=== PATIENT | female | born 1940 | race Caucasian/White ===

== ENCOUNTER 2016-07-12 18:06 | Emergency (ER) | END 2016-07-12 21:18 | disposition home or self-care (01) | CPT/HCPCS: 94640; 99283; A9270; J7620 ==

== ENCOUNTER 2016-07-18 14:39 | Emergency (ER) | payer MEDICARE, OTHER ==
[2016-07-18] MEDS ORDERED: AZITHROMYCIN 250 MG TABLET PO STA (16:07)
[2016-07-18] MEDS ORDERED: AZITHROMYCIN 250 MG TABLET PO ONE (16:09)
== END 2016-07-18 16:23 | disposition home or self-care (01) ==
DX: R05 Cough (principal); G70.00 Myasthenia gravis without (acute) exacerbation; I10 Essential (primary) hypertension
CPT/HCPCS: 71020; 99283; A9270

== ENCOUNTER 2019-02-23 08:00 | Outpatient (CLI) | payer MEDICARE, OTHER | END 2019-02-23 23:59 | disposition home or self-care (01) | LOC: LAB.R 08:00 | PROVIDERS: ATTEND Internal Medicine Gastroenterology | DX: R19.7 Diarrhea, unspecified (principal) | CPT/HCPCS: 83993 ==

== ENCOUNTER 2019-07-17 07:00 | Outpatient (CLI) | payer MEDICARE, OTHER | END 2019-07-17 23:59 | disposition home or self-care (01) | LOC: LAB.R 07:00 | PROVIDERS: ATTEND Internal Medicine Gastroenterology | DX: R19.7 Diarrhea, unspecified (principal) | CPT/HCPCS: 81599; 83993 ==

== ENCOUNTER 2019-07-17 14:02 | Outpatient (CLI) | payer MEDICARE, OTHER ==
[2019-07-17 14:38] LABS: CALCIUM 8.7 mg/dL (8.5-10.3); CREATININE 1.2 mg/dL (0.4-1.0)
[2019-07-17 14:41] LABS: BILIRUBIN,URINE NEGATIVE (NEGATIVE); GLUCOSE, URINE (UA) NEGATIVE (NEGATIVE); KETONES,URINE (UA) NEGATIVE (NEGATIVE); LEUKOCYTE ESTERASE, URINE NEGATIVE (NEGATIVE); NITRITE,URINE POSITIVE (NEGATIVE); OCCULT BLOOD,URINE MODERATE (NEGATIVE); PH,URINE 5.5 PH (5.0-7.5); PROTEIN,URINE TRACE mg/dL (NEGATIVE); UROBILINOGEN,URINE 0.2 (NORMAL) E.U./dL (NORMAL)
[2019-07-17 14:42] LABS: CLARITY,URINE HAZY (CLEAR)
[2019-07-17 14:50] LABS: BACTERIA,URINE Moderate /HPF (None Seen); RBC,URINE 0-5 /HPF (0-5); SQUAMOUS EPITHELIAL CELL,UR FEW Squamous (<= Few)
[2019-07-17 14:50] LABS: HB2 TOTAL 11.2 g/dL; HEMOGLOBIN A1C 0.57 g/dL; HEMOGLOBIN A1C % 6.8 % (4.6-6.2)
== END 2019-07-17 14:03 | disposition home or self-care (01) ==
LOC: LAB 14:02
PROVIDERS: ATTEND Family Medicine
DX: E11.9 Type 2 diabetes mellitus without complications (principal); N39.0 Urinary tract infection, site not specified; R19.7 Diarrhea, unspecified
CPT/HCPCS: 36415; 80048; 81001; 81599; 83036; 83993

== ENCOUNTER 2019-09-30 22:33 | Emergency (ER) | payer MEDICARE, OTHER ==
--- NOTE | 2019-09-30 23:06 | ED Physician Documentation ---
History of Present Illness - Stated complaint Stated Complaint: COUGH - Chief complaint Chief Complaint: Resp - History obtained from History obtained from: Patient (The patient is a 78-year-old female who presents to the emergency department for a 3-day history of cough. She denies any fevers or difficulty breathing or wheezing or respiratory distress denies any chest pain or lower extremity swelling denies headache, neck pain fevers or rashes.) Review of Systems Constitutional: reports: Reviewed and negative Eyes: reports: Reviewed and negative Ears: reports: Reviewed and negative Nose: reports: Reviewed and negative Throat: reports: Reviewed and negative Cardiac: reports: Reviewed and negative Respiratory: reports: Cough GI: reports: Reviewed and negative : reports: Reviewed and negative Skin: reports: Reviewed and negative Musculoskeletal: reports: Reviewed and negative Neurologic: reports: Reviewed and negative Psychiatric: reports: Reviewed and negative Endocrine: reports: Reviewed and negative Immunocompromised: reports: Reviewed and negative PD PAST MEDICAL HISTORY - Past Medical History Cardiovascular: Hypertension GI: GERD - Past Surgical History Past Surgical History: Yes General: Cholecystectomy Ortho: Hip replacement, Knee replacement, 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 - Present Medications Home Medications: Ambulatory Orders Medication Instructions Recorded Confirmed Naproxen 500 mg ORAL .FREQ 07/07/16 09/30/19 Benzonatate [Tessalon Perle] 100 mg PO BID PRN #7 capsule 09/30/19 Levothyroxine [Synthroid] 1 tab DAILY 09/30/19 09/30/19 Multivitamin [Multiple Vitamins] 1 tab DAILY 09/30/19 09/30/19 - Allergies Allergies/Adverse Reactions: Allergies Allergy/AdvReac Type Severity Reaction Status Date / Time Sulfa (Sulfonamide Allergy Unknown Verified 09/30/19 22:41 Antibiotics) - Social History Does the pt smoke?: No Smoking Status: Never smoker Does the pt drink ETOH?: No Does the pt have substance abuse?: No - Immunizations Immunizations are current?: Yes - POLST Patient has POLST: No PD ED PE NORMAL - Vitals Vital signs reviewed: Yes - General General: Alert and oriented X 3, No acute distress, Well developed/nourished - HEENT HEENT: Atraumatic, PERRL, Moist mucous membranes, Pharynx benign - Neck Neck: Supple, no meningeal sign, No adenopathy - Cardiac Cardiac: RRR, No murmur, Strong equal pulses - Respiratory Respiratory: No respiratory distress, Clear bilaterally - Abdomen Abdomen: Normal bowel sounds, Soft, Non tender, Non distended, No organomegaly - Derm Derm: Normal color, Warm and dry, No rash - Extremities Extremities: No deformity, No tenderness to palpate, Normal ROM s pain, No edema, No calf tenderness / cord - Neuro Neuro: Alert and oriented X 3, ice cream dipper 2-12 intact, No motor deficit, No sensory deficit, Normal speech - Psych Psych: Normal mood, Normal affect Results - Vitals Vitals: Vital Signs - 24 hr 09/30/19 09/30/19 22:38 23:15 Temperature 36.6 C Heart Rate 72 65 Respiratory 16 20 Rate Blood Pressure 134/90 H 137/65 H O2 Saturation 95 96 Oxygen O2 Source Room air PD MEDICAL DECISION MAKING - ED course Complexity details: considered differential (History and exam are consistent with viral syndrome/viral uri, will get a chest x-ray to look for any signs of pneumonia) Departure - Departure Disposition: 01 Home, Self Care Clinical Impression: Cough Condition: Stable Instructions: Bronchitis Chronic Follow-Up: STEVEN LUJAN [Primary Care Provider] - Tomorrow Prescriptions: Benzonatate [Tessalon Perle] 100 mg PO BID PRN #7 capsule PRN Reason: Cough
--- NOTE | 2019-09-30 23:48 | XRAY Report ---
Reason: cough Procedure Date: 09/30/2019 Accession Number: [id number] / [id number] Procedure: XR - Chest 1 View X-Ray CPT Code: 42958 Final Report FULL RESULT: EXAM: CHEST RADIOGRAPHY EXAM DATE: 09/30/2019 11:39 PM. CLINICAL HISTORY: Cough. COMPARISON: CHEST 2 VIEW PA/LAT 07/18/2016 3:27 PM. TECHNIQUE: 1 view. FINDINGS: Lungs/Pleura: No focal opacities evident. No pulmonary edema. No pleural effusion. No pneumothorax. Mediastinum: Within exam limitations, the cardiomediastinal contour is normal. Other: Stable left shoulder arthroplasty. IMPRESSION: No evidence of acute cardiopulmonary process. RADIA
[2019-09-30] MEDS ORDERED: BENZONATATE 100 MG CAPSULE PO STA (23:58)
[2019-10-01 00:17] VITALS: BP 133/76
== END 2019-10-01 00:18 | disposition home or self-care (01) ==
LOC: ED 22:33
DX: R05 Cough (principal); I10 Essential (primary) hypertension
CPT/HCPCS: 71045; 99283; A9270

== ENCOUNTER 2019-10-02 22:43 | Emergency (ER) | payer MEDICARE, OTHER ==
--- NOTE | 2019-10-02 23:57 | ED Physician Documentation ---
History of Present Illness - Stated complaint Stated Complaint: COUGH - Chief complaint Chief Complaint: Heent - Additonal information Additional information: This is a 78-year-old female with a history of past bronchitis who pesents with a cough. She developed cough 1 week ago, it has been persistent since then. She was seen here and prescribed Tessalon Perles 100mg twice daily which have been minimally effective. She denies any fever, shortness of breath, or chest pain. The cough is annoying and keeps her up, but she otherwise is feeling well. No leg swelling or history of heart problems. No hemoptysis. Review of Systems Constitutional: denies: Fever Nose: denies: Rhinorrhea / runny nose Cardiac: denies: Chest pain / pressure Respiratory: reports: Cough. 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 - Present Medications Home Medications: Ambulatory Orders Medication Instructions Recorded Confirmed Naproxen 500 mg ORAL .FREQ 07/07/16 09/30/19 Benzonatate [Tessalon Perle] 100 mg PO BID PRN #7 capsule 09/30/19 Levothyroxine [Synthroid] 1 tab DAILY 09/30/19 09/30/19 Multivitamin [Multiple Vitamins] 1 tab DAILY 09/30/19 09/30/19 - Allergies Allergies/Adverse Reactions: Allergies Allergy/AdvReac Type Severity Reaction Status Date / Time Sulfa (Sulfonamide Allergy Unknown Verified 10/02/19 22:48 Antibiotics) - Social History Does the pt smoke?: No Smoking Status: Never smoker Does the pt drink ETOH?: No Does the pt have substance abuse?: No - Immunizations Immunizations are current?: Yes - POLST Patient has POLST: No PD ED PE NORMAL - Vitals Vital signs reviewed: Yes - General General: Alert and oriented X 3, No acute distress - HEENT HEENT: PERRL - Neck Neck: Supple, no meningeal sign - Cardiac Cardiac: RRR, No murmur - Respiratory Respiratory: Other (Intermittent cough, lungs clear to Auscultation bilaterally, normal work of breathing.) - Abdomen Abdomen: Normal bowel sounds, Soft, Non tender, Non distended - Derm Derm: Warm and dry - Extremities Extremities: No deformity - Neuro Neuro: Alert and oriented X 3 - Psych Psych: Normal mood, Normal affect Results - Vitals Vitals: Vital Signs - 24 hr 10/02/19 10/02/19 10/03/19 22:48 23:53 01:02 Temperature 36.6 C Heart Rate 73 67 100 Respiratory 14 18 16 Rate Blood Pressure 141/67 H 154/75 H 158/63 H O2 Saturation 95 96 96 10/03/19 10/03/19 02:50 02:52 Temperature Heart Rate 71 Respiratory 16 Rate Blood Pressure 150/64 H O2 Saturation 98 Oxygen O2 Source Room air PD MEDICAL DECISION MAKING - ED course Complexity details: considered differential (URI, pneumonia, COVID-19, heart failure, medication side effect, post-viral cough) ED course: Patient is very well-appearing on examination, vital signs are unremarkable, oxygen saturation is normal, she has no respiratory distress. She has no history of heart failure, no chest pain, no leg swelling. Her chest x-ray does not show any signs of acute cardiopulmonary process. No signs of pneumonia, pneumothorax. She is still within the expected range for a viral cough, and she otherwise has no symptoms concerning for a more serious process or infection. She has been trying [id number] medications, but taking low doses. I reviewed return precautions with the patient, supportive care, primary care follow-up. Patient agrees with plan and was discharged home in good condition. We did consider COVID-19, however patient has no shortness of breath, no fever, and this cough began when she had been completely isolated for 2 weeks, making it very unlikely. Departure - Departure Disposition: 01 Home, Self Care Clinical Impression: Cough Instructions: ED URI Viral Follow-Up: STEVEN LJUAN [Primary Care Provider] - Within 1 week Comments: You were seen today for cough, your chest x-ray does not show signs of a pneumonia and your oxygen level is normal at this time. Please try the Tessalon Perles 200 mg (2 Perles) up to 3 times daily as needed for cough. You may also try [id number] cough/cold relief medications. If you are developing shortness of breath fever, chest pain, or other concerning symptoms, return to the emergency department. You may also try a humidifier, and tea with honey, which can help with cough.
--- NOTE | 2019-10-03 02:38 | XRAY Report ---
Reason: cough for one week, worsening Procedure Date: 10/03/2019 Accession Number: [id number] / [id number] Procedure: XR - Chest 2 View X-Ray CPT Code: 50627 Final Report FULL RESULT: EXAM: CHEST RADIOGRAPHY EXAM DATE: 10/03/2019 02:27 AM CLINICAL HISTORY: Cough for one week, worsening PRIORS: Prior 09/30/19. COMPARISON: CHEST 1 VIEW 09/30/2019 11:20 PM. TECHNIQUE: 2 views. FINDINGS: Lungs/Pleura: Clear lungs with hyperinflation. No pleural effusion. No pneumothorax. Mediastinum: Within exam limitations, the cardiomediastinal contour is normal. Other: Cholecystectomy clips. Status post left shoulder arthroplasty. IMPRESSION: No acute cardiopulmonary process. RADIA
[2019-10-03 02:53] VITALS: BP 150/64
== END 2019-10-03 03:07 | disposition home or self-care (01) ==
LOC: ED 22:43
DX: R05 Cough (principal); I10 Essential (primary) hypertension
CPT/HCPCS: 71046; 99283; 99284

== ENCOUNTER 2019-10-07 16:13 | Emergency (ER) | payer MEDICARE, OTHER ==
--- NOTE | 2019-10-07 17:01 | ED Physician Documentation ---
PD HPI URI - Stated complaint Stated Complaint: COUGH - Chief complaint Chief Complaint: Resp - History obtained from History obtained from: Patient - History of Present Illness Timing - onset: How many weeks ago (2) Timing duration: Weeks (2) Timing details: Gradual onset, Still present Associated symptoms: Productive cough (now is productive of yellow sputum.). No: Fever Contributing factors: COPD / asthma. No: Sick contact, Immunocompromised Recently seen: Clinic, Emergency Dept (seen for cough with Rx of Tessalon and Prednisone that pt says has not helped. Had had some UTI symptoms as well and was on Rx of Bactrim and not feeling improved. Had UA done at [facility] , without results yet. Having persistent and worse cough, now productive.) Review of Systems Constitutional: denies: Fever, Chills, Myalgias Nose: reports: Congestion. denies: Rhinorrhea / runny nose Throat: denies: Sore throat Cardiac: reports: Chest pain / pressure (hurting with coughing hard.). denies: Palpitations Respiratory: reports: Dyspnea, Cough. denies: Wheezing : reports: Dysuria Musculoskeletal: denies: Neck pain, Back pain Neurologic: reports: Generalized weakness. 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 - Present Medications Home Medications: Ambulatory Orders Medication Instructions Recorded Confirmed Naproxen 500 mg ORAL .FREQ 07/07/16 09/30/19 Benzonatate [Tessalon Perle] 100 mg PO BID PRN #7 capsule 09/30/19 Levothyroxine [Synthroid] 1 tab DAILY 09/30/19 09/30/19 Multivitamin [Multiple Vitamins] 1 tab DAILY 09/30/19 09/30/19 Albuterol Sulfate [Albuterol 2 puffs IH QID #1 hfa.aer.ad 10/07/19 Sulfate Hfa] Doxycycline Monohydrate 100 mg PO BID #14 tablet 10/07/19 Fluconazole [Diflucan] 150 mg PO Q3H #2 tablet 10/07/19 Hydrocodone/Acetaminophen [Temple 1 each PO Q6H PRN #20 tablet 10/07/19 5-325 Tablet] dexAMETHasone [Decadron] 4 mg PO DAILY #5 tablet 10/07/19 - Allergies Allergies/Adverse Reactions: Allergies Allergy/AdvReac Type Severity Reaction Status Date / Time Sulfa (Sulfonamide Allergy Unknown Verified 10/07/19 16:24 Antibiotics) - Social History Does the pt smoke?: No Smoking Status: Never smoker Does the pt drink ETOH?: No Does the pt have substance abuse?: No - Immunizations Immunizations are current?: Yes - POLST Patient has POLST: No PD ED PE NORMAL - Vitals Vital signs reviewed: Yes - General General: Alert and oriented X 3, No acute distress, Well developed/nourished - HEENT HEENT: Ears normal, Moist mucous membranes, Pharynx benign - Neck Neck: Supple, no meningeal sign, No adenopathy - Cardiac Cardiac: RRR, No murmur - Respiratory Respiratory: Clear bilaterally - Abdomen Abdomen: Soft, Non tender - Back Back: No CVA TTP - Derm Derm: Normal color, Warm and dry - Extremities Extremities: No deformity, No tenderness to palpate, Normal ROM s pain, No edema, No calf tenderness / cord - Neuro Neuro: Alert and oriented X 3, No motor deficit, Normal speech Results - Vitals Vitals: Vital Signs - 24 hr 10/07/19 10/07/19 16:24 17:50 Temperature 37 C 37.4 C Heart Rate 94 89 Respiratory 20 12 Rate Blood Pressure 167/79 H 137/79 H O2 Saturation 93 95 Oxygen O2 Source Room air - Labs Labs: Laboratory Tests 10/07/19 17:30 Urine Color YELLOW Urine Clarity CLEAR Urine pH 5.5 Ur Specific [place] >=1.030 H Urine Protein 30 H Urine Glucose (UA) 250 H Urine Ketones TRACE Urine Occult Blood SMALL H Urine Nitrite POSITIVE H Urine Bilirubin NEGATIVE Urine Urobilinogen 0.2 (NORMAL) Ur Leukocyte Esterase NEGATIVE Urine RBC 0-5 Urine WBC 4-5 Ur Squamous Epith Cells RARE Squamous Urine Bacteria Many H Urine Casts 3-5 Granular Casts Ur Microscopic Review INDICATED Urine Culture Comments INDICATED PD MEDICAL DECISION MAKING - ED course Complexity details: reviewed old records, reviewed results, considered differential (sounds like bronchitis, and had had UTI and did not think it cleared. Will get UA and give meds for bacterial bronchitis. Doxycycline could be good choice. ), d/w patient Departure - Departure Disposition: Home, Self Care Clinical Impression: Bronchitis, Cough Upper respiratory infection Qualifiers: URI type: unspecified URI Qualified Code(s): J06.9 - Acute upper respiratory infection, unspecified UTI (urinary tract infection) Qualifiers: Urinary tract infection type: acute cystitis Hematuria presence: without hematuria Qualified Code(s): N30.00 - Acute cystitis without hematuria Condition: Stable Record reviewed to determine appropriate education?: Yes Instructions: ED Upper Resp Infec Abx Tx, ED UTI Cystitis Female Follow-Up: STEVEN LUJAN [Primary Care Provider] - Prescriptions: Albuterol Sulfate [Albuterol Sulfate Hfa] 2 puffs IH QID #1 hfa.aer.ad dexAMETHasone [Decadron] 4 mg PO DAILY #5 tablet Doxycycline Monohydrate 100 mg PO BID #14 tablet Fluconazole [Diflucan] 150 mg PO Q3H #2 tablet Hydrocodone/Acetaminophen [Temple 5-325 Tablet] 1 each PO Q6H PRN #20 tablet PRN Reason: Pain Comments: Stay well-hydrated. Use the albuterol inhaler 2 puffs 4 times a day for the next 7 to 10 days. Decadron steroid for bronchial inflammation. Use the hydrocodone if needed for cough suppression. Doxycycline antibiotic for your bronchitis and hopefully this will cover the bladder as well. Use Diflucan every 3 days for 2 doses so you do not get the yeast infection. Stay well-hydrated and recheck with your primary care in the next 3 to 5 days, call tomorrow for an appointment. Discharge Date/Time: 10/07/19 18:26
[2019-10-07] MEDS ORDERED: HYDROcod/ACETAM 5/325 MG TABLET PO STA (17:24)
[2019-10-07] MEDS ORDERED: DOXYCYCLINE 100 MG TABLET PO STA (17:24)
[2019-10-07] MEDS ORDERED: DEXAMETHASONE 10 MG/ML VIAL PO STA (17:24)
[2019-10-07] MEDS ORDERED: CHERRY SYRUP 10 ML UDC PO ONE (17:24)
[2019-10-07 17:37] LABS: BILIRUBIN,URINE NEGATIVE (NEGATIVE); GLUCOSE, URINE (UA) 250 mg/dL (NEGATIVE); KETONES,URINE (UA) TRACE mg/dL (NEGATIVE); LEUKOCYTE ESTERASE, URINE NEGATIVE (NEGATIVE); NITRITE,URINE POSITIVE (NEGATIVE); OCCULT BLOOD,URINE SMALL (NEGATIVE); PH,URINE 5.5 PH (5.0-7.5); PROTEIN,URINE 30 mg/dL (NEGATIVE); UROBILINOGEN,URINE 0.2 (NORMAL) E.U./dL (NORMAL)
[2019-10-07 17:38] LABS: CLARITY,URINE CLEAR (CLEAR)
[2019-10-07 17:50] VITALS: BP 137/79
[2019-10-07 17:53] LABS: BACTERIA,URINE Many /HPF (None Seen); CASTS, URINE 3-5 Granular Casts /LPF; RBC,URINE 0-5 /HPF (0-5); SQUAMOUS EPITHELIAL CELL,UR RARE Squamous (<= Few)
[2019-10-07] MEDS ORDERED: HYDROcod/ACET 5/325 Prepack 4 PO STA (18:10)
== END 2019-10-07 18:26 | disposition home or self-care (01) ==
LOC: ED 16:13
DX: J06.9 Acute upper respiratory infection, unspecified (principal); J40 Bronchitis, not specified as acute or chronic; N30.00 Acute cystitis without hematuria; I10 Essential (primary) hypertension
CPT/HCPCS: 81001; 87077; 87086; 87181; 99284; A9270; 81003

== ENCOUNTER 2020-02-20 11:17 | Emergency (ER) | payer MEDICARE, OTHER ==
[2020-02-20] MEDS ORDERED: ALBUTEROL 1 PUFF INH STA (12:28)
--- NOTE | 2020-02-20 12:33 | ED Physician Documentation ---
History of Present Illness - Stated complaint Stated Complaint: COUGH - Chief complaint Chief Complaint: Resp - History obtained from History obtained from: Patient - History of Present Illness Timing: Prior to arrival, How many weeks ago (9) - Additonal information Additional information: 79-year-old female presents to the emergency department for evaluation of cough that she reports has been ongoing for nearly 2 months. She states that she was seen at [facility] for a superficial DVT 2 weeks ago and was told she had a normal chest x-ray. She states that she coughs at all times even when supine at night. The cough is typically productive. It is not necessarily exacerbated by movement or activity. She reports that she was treated for pneumonia in September 2019 but has had no antibiotics since. She denies that she carries a history of asthma or COPD. She smoked very briefly when she was a teenager but has not smoked for nearly 55 years. Does not take any prescribed breathing medications. Denies fevers, hemoptysis night sweats or weight loss. She denies a runny nose, she denies signs of acid reflux. She reports that she has been tested twice for COVID-19 and was negative each time. She denies SOB or chest pain pmh: htn, DVT, ulcerative colitis meds: Xarelto, hydrochlorothiazide, mesalamine Review of Systems Constitutional: denies: Fever, Chills Ears: denies: Drainage/discharge, Tinnitus/ringing Nose: denies: Rhinorrhea / runny nose, Congestion, Foreign Body Throat: denies: Dental pain / toothache, Oral lesions / sores, Sore throat Cardiac: denies: Chest pain / pressure, Palpitations, Calf pain Respiratory: reports: Cough. denies: Dyspnea GI: reports: Diarrhea (hx of UC). denies: Abdominal Pain, Abdominal Swelling, Nausea, Vomiting, Constipation, Hematemesis : denies: Dysuria, Frequency Skin: denies: Rash, Lesions Musculoskeletal: denies: Neck pain, Back pain Neurologic: denies: Generalized weakness, Focal weakness, Numbness, Syncope Psychiatric: denies: Depressed, Suicidal PD PAST MEDICAL HISTORY - Past Medical History Cardiovascular: Hypertension Respiratory: None Neuro: None, Other Endocrine/Autoimmune: HyPOthyroidism, Other GI: GERD, Ulcerative colitis : None, Other Psych: None Musculoskeletal: Osteoarthritis Derm: None - Past Surgical History Past Surgical History: Yes General: Cholecystectomy Ortho: Hip replacement, Knee replacement, 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 - Present Medications Home Medications: Ambulatory Orders Medication Instructions Recorded Confirmed Benzonatate [Tessalon Perle] 100 mg PO BID PRN #7 capsule 09/30/19 10/14/19 Levothyroxine [Synthroid] 100 mcg PO DAILY 09/30/19 10/14/19 Multivitamin [Multiple Vitamins] 1 tab DAILY 09/30/19 10/14/19 Albuterol Sulfate [Albuterol 2 puffs IH QID #1 hfa.aer.ad 10/07/19 10/14/19 Sulfate Hfa] Hydrocodone/Acetaminophen [Bath 1 each PO Q6H PRN #20 tablet 10/07/19 10/14/19 5-325 Tablet] Famotidine [Pepcid] 20 mg PO BID 10/14/19 10/14/19 Azithromycin 250 mg PO DAILY #4 tablet 10/15/19 Azithromycin 250 mg PO DAILY 4 Days #4 tablet 10/15/19 Cefpodoxime Proxetil [Vantin] 200 mg PO Q12H 5 Days #10 tablet 10/15/19 Cefpodoxime Proxetil [Vantin] 200 mg PO Q12H 5 Days #10 tablet 10/15/19 Hydrocodone/Acetaminophen [Bath 1 each PO Q6HR #20 tablet 10/15/19 5-325 Tablet] Hydrocodone/Acetaminophen [Bath 1 each PO Q6HR #20 tablet 10/15/19 5-325 Tablet] Albuterol Sulf [Ventolin Hfa 1 - 2 puffs INH Q4HR PRN #1 inhaler 02/20/20 Inhaler] Azithromycin [Zithromax] 0 mg PO DAILY #6 tablet 02/20/20 - Allergies Allergies/Adverse Reactions: Allergies Allergy/AdvReac Type Severity Reaction Status Date / Time Sulfa (Sulfonamide Allergy Unknown Verified 02/20/20 11:45 Antibiotics) - Social History Does the pt smoke?: No Smoking Status: Never smoker Does the pt drink ETOH?: No Does the pt have substance abuse?: No - Immunizations Immunizations are current?: Yes - POLST Patient has POLST: No POLST Status: Full Code PD ED PE NORMAL - General General: Alert and oriented X 3, No acute distress, Well developed/nourished - HEENT HEENT: PERRL, EOMI - Neck Neck: Supple, no meningeal sign, No adenopathy - Cardiac Cardiac: RRR, No murmur - Respiratory Respiratory: No respiratory distress, Other (Generalized rhonchorous breath sounds bilateral upper lung rizvi.) - Abdomen Abdomen: Normal bowel sounds, Soft - Back Back: No CVA TTP Results - Vitals Vitals: Vital Signs - 24 hr 02/20/20 02/20/20 02/20/20 11:41 12:51 13:15 Temperature 36.5 C 36.5 C Heart Rate 81 70 74 Respiratory 20 26 H 18 Rate Blood Pressure 129/66 135/59 H O2 Saturation 97 96 Oxygen O2 Source Room air - Rads (name of study) CXR Radiology: Final report received (Mild interstitial prominence which could represent pulmonary edema or atypical pneumonia. Mild central bronchial wall thickening stable compared to prior exams may represent recurrent bronchitis or chronic lung disease) PD MEDICAL DECISION MAKING - ED course Complexity details: reviewed results, considered differential, d/w patient, d/w family ED course: 79-year-old female presents to the emergency department for evaluation of a productive cough of more than 2 months duration. Differential includes but not limited pneumonia, chronic bronchitis, allergies, acid reflux, tumor -Her chest x-ray suggests interstitial prominence which may be mild pulmonary edema or an atypical pneumonia. Given the duration of the cough and the fact that is productive we will give her a course of antibiotics and asked for her to be reevaluated by her primary care doctor in 7 to 10 days. Reassuringly she has no hypoxia and her vital signs are otherwise well. Patient was given some albuterol here in the department and that did reduce the quality of her cough therefore I will prescribe some albuterol on discharge. Departure - Departure Disposition: 01 Home, Self Care Clinical Impression: Cough Condition: Stable Instructions: Pneumonia Dc Follow-Up: STEVEN LUJAN [Primary Care Provider] - Prescriptions: Albuterol Sulf [Ventolin Hfa Inhaler] 1 - 2 puffs INH Q4HR PRN #1 inhaler PRN Reason: Shortness Of Air/Wheezing Azithromycin [Zithromax] 0 mg PO DAILY #6 tablet Comments: Ebony the chest x-ray suggest that you might have a very subtle pneumonia. Therefore we are prescribing you some antibiotics. Please take the full course as prescribed. I am also prescribing you an inhaler to be used as needed throughout the day this may help reduce your coughing spasms. I think it is important that you follow-up with your primary care doctor in about 1 week to 10 days. If your cough is not better despite the antibiotics further testing may be indicated. Return to the emergency department if you develop fevers, have chest pain, have shortness of breath or feel that your symptoms are not improving
--- NOTE | 2020-02-20 13:11 | XRAY Report ---
PROCEDURE: Chest 1 View X-Ray INDICATIONS: chest pain TECHNIQUE: One view of the chest was acquired. COMPARISON: 11/12/2019, 10/03/2019 and 09/30/2019 FINDINGS: Surgical changes and devices: Left shoulder arthroplasty. Lungs and pleura: No pleural effusions or pneumothorax. Mild prominence of the interstitial noted wh ich could represent pulmonary edema or atypical pneumonia. Central bronchial wall thickening noted no t significant changed compared to prior examinations may be related to bronchitis or chronic lung dis ease. Mediastinum: Mediastinal contours appear normal. Heart size is normal. Bones and chest wall: No suspicious bony lesions. Overlying soft tissues appear unremarkable. IMPRESSION: 1. Mild interstitial prominence which could represent pulmonary edema or atypical pneumonia. 2. Mild central bronchial wall thickening stable compared to prior exams may represent recurrent bron chitis or chronic lung disease. Reviewed by: Laure Jade MD, PhD on 02/20/2020 1:10 PM PDT Approved by: Laure Jade MD, PhD on 02/20/2020 1:10 PM PDT Station ID: [id number]
[2020-02-20 13:39] VITALS: BP 142/79
== END 2020-02-20 13:43 | disposition home or self-care (01) ==
LOC: ED 11:17
DX: R05 Cough (principal); J98.09 Other diseases of bronchus, not elsewhere classified; R19.7 Diarrhea, unspecified; I10 Essential (primary) hypertension; Z79.01 Long term (current) use of anticoagulants; Z86.718 Personal history of other venous thrombosis and embolism; Z87.19 Personal history of other diseases of the digestive system
CPT/HCPCS: 71045; 99283; 99284

== ENCOUNTER 2020-06-16 11:53 | Emergency (ER) | payer MEDICARE, OTHER ==
[2020-06-16] MEDS ORDERED: TETANUS/DIPHTHERIA/PERTUSSIS 0.5 ML SYRINGE IM ONE (12:53)
--- NOTE | 2020-06-16 13:04 | ED Physician Documentation ---
PD HPI UPPER EXT INJURY - Stated complaint Stated Complaint: RT ARM LAC - Chief complaint Chief Complaint: Laceration - History obtained from History obtained from: Patient - History of Present Illness Location: Right, Forearm Type of injury: Laceration Where injury occurred: Home Timing - onset: Today Timing - duration: Hours (2) Timing - details: Gradual onset Improved by: Rest Worsened by: Moving, Palpating Associated symptoms: No: Weakness, Numbness, Tingling, Swelling Recently seen: Not recently seen Review of Systems Constitutional: denies: Fever, Chills GI: denies: Vomiting, Diarrhea Skin: denies: Rash Musculoskeletal: denies: Neck pain, Back pain Neurologic: denies: Headache PD PAST MEDICAL HISTORY - Past Medical History Past Medical History: Yes Cardiovascular: Hypertension Respiratory: None Neuro: None, Other Endocrine/Autoimmune: HyPOthyroidism, Other GI: GERD, Ulcerative colitis : None, Other Psych: None Musculoskeletal: Osteoarthritis Derm: None - Past Surgical History Past Surgical History: Yes General: Cholecystectomy Ortho: Hip replacement, Knee replacement, 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 - Present Medications Home Medications: Ambulatory Orders Medication Instructions Recorded Confirmed Levothyroxine [Synthroid] 100 mcg PO DAILY 09/30/19 06/16/20 Multivitamin [Multiple Vitamins] 1 tab DAILY 09/30/19 06/16/20 Famotidine [Pepcid] 20 mg PO BID 10/14/19 06/16/20 Rivaroxaban [Xarelto] 20 mg PO DAILY 06/16/20 06/16/20 hydroCHLOROthiazide 50 mg PO DAILY 06/16/20 06/16/20 [Hydrochlorothiazide] - Allergies Allergies/Adverse Reactions: Allergies Allergy/AdvReac Type Severity Reaction Status Date / Time Sulfa (Sulfonamide Allergy Unknown Verified 06/16/20 12:13 Antibiotics) - Social History Does the pt smoke?: No Smoking Status: Never smoker Does the pt drink ETOH?: No Does the pt have substance abuse?: No - Immunizations Immunizations are current?: Yes - POLST Patient has POLST: No POLST Status: Full Code PD ED PE NORMAL - Vitals Vital signs reviewed: Yes - General General: Alert and oriented X 3, No acute distress - HEENT HEENT: Moist mucous membranes - Neck Neck: Supple, no meningeal sign - Derm Derm: Warm and dry - Extremities Extremities: Other (2 skin tears, 2cm and 2cm. NVI) - Neuro Neuro: Alert and oriented X 3 - Psych Psych: Normal mood, Normal affect Results - Vitals Vitals: Vital Signs - 24 hr 06/16/20 06/16/20 12:10 13:24 Temperature 36.7 C Heart Rate 82 77 Respiratory 16 18 Rate Blood Pressure 123/75 118/68 O2 Saturation 99 97 Oxygen O2 Source Room air Procedures - Laceration (location) R forearm Length in cm: 4 (2 lacerations, 2cm each) Wound type: Linear, Flap Neurovascular status: Sensory intact, Motor intact, Vascular intact Wound Preparation: Irrigated copiously NS Skin layer closure: Dermabond Other: Patient tolerated well, No complications, Neurovascular intact, Tetanus booster given (tdap) Complexity: Simple PD MEDICAL DECISION MAKING - ED course Complexity details: considered differential, d/w patient ED course: Patient with 2 skin tears, repaired with Dermabond. Tolerated well. Tdap given. Warnings of infection and instructions on wound care given at bedside. Also counseled on how to minimize scarring. Patient counseled regarding signs and symptoms for which I believe and urgent re-evaluation would be necessary. Patient with good understanding of and agreement to plan and is comfortable going home at this time This document was made in part using voice recognition software. While efforts are made to proofread this document, sound alike and grammatical errors may occur. Departure - Departure Disposition: 01 Home, Self Care Clinical Impression: Skin tear Condition: Good Instructions: ED Laceration Ext Skin Glue Follow-Up: STEVEN LUJAN [Primary Care Provider] - As Needed Comments: The glue will fall off on its own. Do not apply any ointment as this will dissolve the glue. Return if you worsen. Discharge Date/Time: 06/16/20 13:24
[2020-06-16 13:25] VITALS: BP 118/68
== END 2020-06-16 13:24 | disposition home or self-care (01) ==
LOC: ED 11:53
DX: S51.811A Laceration without foreign body of right forearm, initial encounter (principal); W22.09XA Striking against other stationary object, initial encounter; Y93.E2 Activity, laundry; Y92.009 Unspecified place in unspecified non-institutional (private) residence as the place of occurrence of the external cause; Z23 Encounter for immunization; I10 Essential (primary) hypertension; Z79.01 Long term (current) use of anticoagulants
CPT/HCPCS: 12002; 90471; 99282; 99283

== ENCOUNTER 2022-12-15 12:16 | Emergency (ER) | payer MEDICARE, OTHER ==
[2022-12-15 12:52] LABS: BILIRUBIN,URINE NEGATIVE (NEGATIVE); GLUCOSE, URINE (UA) NEGATIVE (NEGATIVE); KETONES,URINE (UA) NEGATIVE (NEGATIVE); LEUKOCYTE ESTERASE, URINE NEGATIVE (NEGATIVE); NITRITE,URINE POSITIVE (NEGATIVE); OCCULT BLOOD,URINE NEGATIVE (NEGATIVE); PROTEIN,URINE TRACE mg/dL (NEGATIVE); UROBILINOGEN,URINE 0.2 (NORMAL) E.U./dL (NORMAL)
[2022-12-15 13:01] LABS: BACTERIA,URINE Moderate /HPF (None Seen); CLARITY,URINE CLEAR (CLEAR); RBC,URINE 0-5 /HPF (0-5); SQUAMOUS EPITHELIAL CELL,UR RARE Squamous (<= Few)
--- NOTE | 2022-12-15 14:37 | ED Physician Documentation ---
History of Present Illness - Stated complaint Stated Complaint: FEMALE ,EYE PX MED REFILL - Chief complaint Chief Complaint: UTI - Additonal information Additional information: 81-year-old female presents emergency department for evaluation urinary frequency especially at nighttime. States in late November she was treated for a UTI and was seen at [facility] for that. At that same time she also had a left conjunctivitis which was treated with ofloxacin drops. She completed a 5- day course of antibiotics and stated the nocturnal urinary symptoms fully resolved until about 5 days ago where she finds that she is typically urinating at about 3-5 times a night which is new for her. She has had no fevers. Denies any abdominal pain or flank pain. She does have a history of myasthenia gravis and at baseline does have some generalized numbness in her lower extremities and genital area. Over the last 2 days she is also found that she is developing some left eye itch and concerned that she is redeveloping the conjunctivitis. Review of Systems Constitutional: denies: Fever, Chills Eyes: reports: Discharge, Irritation : reports: Frequency Skin: reports: Reviewed and negative Musculoskeletal: reports: Reviewed and negative Neurologic: reports: Reviewed and negative PD PAST MEDICAL HISTORY - Past Medical History Cardiovascular: Hypertension Respiratory: None Neuro: None, Other Endocrine/Autoimmune: HyPOthyroidism, Other GI: GERD, Ulcerative colitis : None, Other Psych: None Musculoskeletal: Osteoarthritis Derm: None - Past Surgical History Past Surgical History: Yes General: Cholecystectomy Ortho: Hip replacement, Knee replacement, 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 - Present Medications Home Medications: Ambulatory Orders Medication Instructions Recorded Confirmed Levothyroxine [Synthroid] 100 mcg PO DAILY 09/30/19 06/16/20 Multivitamin [Multiple Vitamins] 1 tab DAILY 09/30/19 06/16/20 Famotidine [Pepcid] 20 mg PO BID 10/14/19 06/16/20 Rivaroxaban [Xarelto] 20 mg PO DAILY 06/16/20 06/16/20 hydroCHLOROthiazide 50 mg PO DAILY 06/16/20 06/16/20 [Hydrochlorothiazide] Cefpodoxime Proxetil [Vantin] 100 mg PO Q12H #14 tablet 12/15/22 Ofloxacin 0.3% Ophth Drops 75 drops LEFTEYE BID #5 ml 12/15/22 [Ocuflox 0.3% Ophth Drops] - Allergies Allergies/Adverse Reactions: Allergies Allergy/AdvReac Type Severity Reaction Status Date / Time Sulfa (Sulfonamide Allergy Unknown Verified 12/15/22 12:38 Antibiotics) - Social History Does the pt smoke?: No Smoking Status: Never smoker Does the pt drink ETOH?: No Does the pt have substance abuse?: No - Immunizations Immunizations are current?: Yes - POLST Patient has POLST: No POLST Status: Full Code PD ED PE NORMAL - General General: Alert and oriented X 3, No acute distress, Well developed/nourished - HEENT HEENT: Atraumatic, PERRL. No: Other (Mild left eye conjunctival injection without discharge or exudate.) - Neck Neck: Supple, no meningeal sign - Cardiac Cardiac: RRR, No murmur - Abdomen Abdomen: Normal bowel sounds, Soft, Non tender - Derm Derm: Normal color, Warm and dry, No rash - Extremities Extremities: No deformity - Neuro Neuro: Alert and oriented X 3, design maker 2-12 intact Eye Opening: Spontaneous Motor: Obeys Commands Verbal: Oriented GCS Score: 15 Results - Vitals Vitals: Vital Signs - 24 hr 12/15/22 12:34 Temperature 36.1 C L Heart Rate 81 Respiratory 16 Rate Blood Pressure 143/73 H O2 Saturation 98 Oxygen O2 Source Room air - Labs Labs: Laboratory Tests 12/15/22 12:40 Urine Color YELLOW Urine Clarity CLEAR Urine pH 5.0 Ur Specific [place] 1.025 Urine Protein TRACE Urine Glucose (UA) NEGATIVE Urine Ketones NEGATIVE Urine Occult Blood NEGATIVE Urine Nitrite POSITIVE H Urine Bilirubin NEGATIVE Urine Urobilinogen 0.2 (NORMAL) Ur Leukocyte Esterase NEGATIVE Urine RBC 0-5 Urine WBC 4-5 Ur Squamous Epith Cells RARE Squamous Urine Bacteria Moderate H Ur Microscopic Review INDICATED Urine Culture Comments INDICATED PD Medical Decision Making - ED course Complexity details: reviewed results, considered differential, d/w patient ED course: 81-year-old female presents emergency department for 5 days of nocturnal urgency and frequency which she has associated with urinary infections in the past. Clinically on exam she appears remarkably well. No flank or abdominal tenderness was elicited. Her urinalysis today is nitrite positive with a lot of bacteria consistent with acute cystitis. Patient will be started on a 7-day prescription of cefpodoxime. She also does have signs of early conjunctivitis in that left eye and I am advising a warm compress. If not markedly improved she will be given a prescription for ofloxacin drops. The usual emergent return precautions for worsening symptoms was discussed Departure - Departure Disposition: 01 Home, Self Care Clinical Impression: Acute cystitis Qualifiers: Hematuria presence: without hematuria Qualified Code(s): N30.00 - Acute cystitis without hematuria Conjunctivitis of left eye Qualifiers: Conjunctivitis type: acute Acute conjunctivitis type: unspecified Qualified Code(s): H10.32 - Unspecified acute conjunctivitis, left eye Condition: Stable Record reviewed to determine appropriate education?: Yes Prescriptions: Ofloxacin 0.3% Ophth Drops [Ocuflox 0.3% Ophth Drops] 75 drops LEFTEYE BID #5 ml Cefpodoxime Proxetil [Vantin] 100 mg PO Q12H #14 tablet Comments: As discussed at the bedside you do have a urinary tract infection today. I have sent a prescription for Vantin and antibiotic that you will take twice daily for the next week. I would expect the nighttime urgency and frequency to be improving over the next several days if not improving then please return to the ER for reevaluation. It does appear as though you are developing an early conjunctivitis or infection in the left eye. I recommend a warm compress over this eye for 10 minutes 2-3 times daily. If not improving then a prescription for ofloxacin eyedrops have been sent to the [facility] pharmacy in [place].
[2022-12-15 15:05] VITALS: BP 135/62
--- NOTE | 2022-12-16 12:42 | ED Physician Documentation ---
ED Addendum - Addendum Addendum: 12/16/22 12:42 Culture reviewed, gram-negative growth greater than 100,000 CFU per mL. She is on cefpodoxime which is appropriate pending speciation and sensitivities.
== END 2022-12-15 15:02 | disposition home or self-care (01) ==
LOC: ED 12:16
DX: N30.00 Acute cystitis without hematuria (principal); B96.89 Other specified bacterial agents as the cause of diseases classified elsewhere; H10.32 Unspecified acute conjunctivitis, left eye; Z87.440 Personal history of urinary (tract) infections; I10 Essential (primary) hypertension; E03.9 Hypothyroidism, unspecified; Z79.899 Other long term (current) drug therapy; Z79.01 Long term (current) use of anticoagulants
CPT/HCPCS: 81001; 81003; 87077; 87086; 87181; 99283

== ENCOUNTER 2024-01-05 13:12 | Outpatient (CLI) | payer MEDICARE, OTHER ==
[2024-01-05 13:23] LABS: BASOPHILS % (AUTO) 0.2 %; HCT - HEMATOCRIT 35.6 % (37.0-47.0); HGB - HEMOGLOBIN 11.3 g/dL (12.0-16.0); LYMPHOCYTES # (AUTO) 0.4 10^3/uL (1.5-3.5); LYMPHOCYTES % (AUTO) 4.4 %; MEAN CORPUSCULAR HEMOGLOBIN 33.3 pg (27.0-31.0); MEAN CORPUSCULAR HGB CONC 31.7 g/dL (32.0-36.0); MEAN PLATELET VOLUME 11.5 fL (7.9-10.8); MONOCYTES # (AUTO) 0.1 10^3/uL (0.0-1.0); MONOCYTES % (AUTO) 1.2 %; NEUTROPHILS # (AUTO) 9.4 10^3/uL (1.5-6.6); NEUTROPHILS % (AUTO) 93.3 %; PLT - PLATELET COUNT 166 10^3/uL (130-450); RED BLOOD COUNT 3.39 10^6/uL (4.20-5.40); RED CELL DISTRIBUTION WIDTH 11.6 % (12.0-15.0); WHITE BLOOD COUNT 10.1 x10^3/uL (4.8-10.8)
[2024-01-05 13:37] LABS: ALBUMIN 3.4 g/dL (3.2-5.5); ALBUMIN/GLOBULIN RATIO 1.2 (1.0-2.2); BILIRUBIN,TOTAL 0.2 mg/dL (0.2-1.0); CALCIUM 8.5 mg/dL (8.5-10.3); CREATININE 1.3 mg/dL (0.6-1.3); POTASSIUM 4.2 mmol/L (3.5-4.5); TOTAL PROTEIN 6.2 g/dL (6.4-8.9)
== END 2024-01-05 13:13 | disposition home or self-care (01) ==
LOC: LAB.R 13:12
DX: I10 Essential (primary) hypertension (principal); I48.20 Chronic atrial fibrillation, unspecified; G70.00 Myasthenia gravis without (acute) exacerbation
CPT/HCPCS: 80053; 83519; 85025

== ENCOUNTER 2024-01-07 20:39 | Emergency (ER) | payer MEDICARE, OTHER ==
[2024-01-07 21:14] LABS: BASOPHILS % (AUTO) 0.3 %; HCT - HEMATOCRIT 35.5 % (37.0-47.0); HGB - HEMOGLOBIN 11.6 g/dL (12.0-16.0); LYMPHOCYTES # (AUTO) 1.3 10^3/uL (1.5-3.5); MEAN CORPUSCULAR HEMOGLOBIN 33.4 pg (27.0-31.0); MEAN CORPUSCULAR HGB CONC 32.7 g/dL (32.0-36.0); MEAN CORPUSCULAR VOLUME 102.3 fL (81.0-99.0); MONOCYTES # (AUTO) 0.6 10^3/uL (0.0-1.0); MONOCYTES % (AUTO) 5.8 %; NEUTROPHILS # (AUTO) 8.2 10^3/uL (1.5-6.6); NEUTROPHILS % (AUTO) 79.5 %; PLT - PLATELET COUNT 187 10^3/uL (130-450); RED BLOOD COUNT 3.47 10^6/uL (4.20-5.40); RED CELL DISTRIBUTION WIDTH 11.5 % (12.0-15.0); WHITE BLOOD COUNT 10.3 x10^3/uL (4.8-10.8)
[2024-01-07 21:34] LABS: ALBUMIN 3.4 g/dL (3.2-5.5); ALBUMIN/GLOBULIN RATIO 1.4 (1.0-2.2); BILIRUBIN,TOTAL 0.2 mg/dL (0.2-1.0); CALCIUM 8.7 mg/dL (8.5-10.3); CREATININE 1.5 mg/dL (0.6-1.3); MAGNESIUM 1.2 mg/dL (1.7-2.3); POTASSIUM 3.9 mmol/L (3.5-4.5); TOTAL PROTEIN 5.9 g/dL (6.4-8.9)
[2024-01-07 21:46] LABS: BILIRUBIN,URINE NEGATIVE (NEGATIVE); GLUCOSE, URINE (UA) 250 mg/dL (NEGATIVE); KETONES,URINE (UA) NEGATIVE (NEGATIVE); LEUKOCYTE ESTERASE, URINE NEGATIVE (NEGATIVE); NITRITE,URINE NEGATIVE (NEGATIVE); OCCULT BLOOD,URINE NEGATIVE (NEGATIVE); PROTEIN,URINE NEGATIVE (NEGATIVE); UROBILINOGEN,URINE 0.2 (NORMAL) E.U./dL (NORMAL)
--- NOTE | 2024-01-07 21:48 | ED Physician Documentation ---
History of Present Illness - Stated complaint Stated Complaint: CONFUSED - Chief complaint Chief Complaint: General - History obtained from History obtained from: Patient - Additonal information Additional information: HPI from patient. 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 In 2001, she was diagnosed with myasthenia gravis. She says her neurologist is Dr. Sung at [facility]. Patient is brought to the ED tonight from [facility]. Patient says that, earlier today, she was having "brain fog" (per patient). She says that this is one of the signs of her myasthenia gravis when she has a flare. She says that tonight, she felt she regained her mental faculties and became alarmed that, in retrospect, was mentally altered earlier in the day. She says she contacted family and requested transfer to the emergency department for evaluation. She denies visual changes, weakness. She says she was recently diagnosed with a urinary tract infection and was prescribed an antibiotic. Review of Systems Constitutional: reports: Reviewed and negative Eyes: reports: Reviewed and negative Cardiac: reports: Reviewed and negative Respiratory: reports: Reviewed and negative GI: reports: Reviewed and negative : denies: Dysuria, Frequency, Incontinent Neurologic: denies: Generalized weakness, Focal weakness, Numbness, Headache PD PAST MEDICAL HISTORY - Past Medical History Cardiovascular: Hypertension Respiratory: None Neuro: None, Other Endocrine/Autoimmune: HyPOthyroidism, Other GI: GERD, Ulcerative colitis : None, Other Psych: None Musculoskeletal: Osteoarthritis Derm: None Other Past Medical History: myasthenia gravis - Past Surgical History Past Surgical History: Yes General: Cholecystectomy Ortho: Hip replacement, Knee replacement, 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 - Present Medications Home Medications: Ambulatory Orders Medication Instructions Recorded Confirmed Levothyroxine [Synthroid] 100 mcg PO DAILY 09/30/19 01/07/24 Multivitamin [Multiple Vitamins] 1 tab DAILY 09/30/19 01/07/24 hydroCHLOROthiazide 50 mg PO DAILY 06/16/20 01/07/24 [Hydrochlorothiazide] Acetaminophen [Tylenol] 1,000 mg PO DAILY 01/07/24 01/07/24 Apixaban [Eliquis] 5 mg PO HS 01/07/24 01/07/24 Calcium Carbonate [Tums (Calcium 500 mg PO BID 01/07/24 01/07/24 Carbonate 500mg)] Ceftriaxone Sodium [Ceftriaxone] 1 gm IM DAILY 01/07/24 01/07/24 Cholecalciferol [Vitamin D3] 25 mcg PO DAILY 01/07/24 01/07/24 Insulin Lispro 100 unit SQ TIDWM 01/07/24 01/07/24 Melatonin 3 mg PO HS 01/07/24 01/07/24 Nystatin [Klayesta] 15 gm TP Q8HR 01/07/24 01/07/24 Omeprazole 40 mg PO DAILY 01/07/24 01/07/24 predniSONE [Prednisone] 30 mg PO DAILY 01/07/24 01/07/24 - Allergies Allergies/Adverse Reactions: Allergies Allergy/AdvReac Type Severity Reaction Status Date / Time Sulfa (Sulfonamide Allergy Unknown Verified 01/07/24 20:43 Antibiotics) - Social History Does the pt smoke?: No Smoking Status: Never smoker Does the pt drink ETOH?: No Does the pt have substance abuse?: No - Immunizations Immunizations are current?: Yes - POLST Patient has POLST: No POLST Status: Full Code PD ED PE NORMAL - Vitals Vital signs reviewed: Yes - General General: Alert and oriented X 3, No acute distress, Well developed/nourished - HEENT HEENT: PERRL, EOMI, Moist mucous membranes, Other (symmetric facies. no ptosis) - Neck Neck: Supple, no meningeal sign - Cardiac Cardiac: RRR, No murmur - Respiratory Respiratory: No respiratory distress, Clear bilaterally - Abdomen Abdomen: Soft, Non tender - Neuro Neuro: Alert and oriented X 3, slide forming machine tender 2-12 intact, No motor deficit, No sensory deficit, Normal speech Eye Opening: Spontaneous Motor: Obeys Commands Verbal: Oriented GCS Score: 15 Results - Vitals Vitals: Vital Signs - 24 hr 01/07/24 01/07/24 01/07/24 20:43 21:00 22:30 Temperature 36.2 C L Heart Rate 78 79 77 Respiratory 16 16 16 Rate Blood Pressure 144/74 H 145/83 H 161/83 H O2 Saturation 95 97 99 01/07/24 01/08/24 01/08/24 23:00 00:00 02:00 Temperature Heart Rate 73 63 76 Respiratory 16 16 16 Rate Blood Pressure 101/72 145/69 H 139/83 H O2 Saturation 98 96 97 Oxygen O2 Source Room air - Labs Labs: Laboratory Tests 01/07/24 01/07/24 01/07/24 21:06 21:06 21:30 WBC 10.3 RBC 3.47 L Hgb 11.6 L Hct 35.5 L MCV 102.3 H MCH 33.4 H MCHC 32.7 RDW 11.5 L Plt Count 187 MPV 11.0 H Neut # (Auto) 8.2 H Lymph # (Auto) 1.3 L [place] # (Auto) 0.6 Eos # (Auto) 0.0 Baso # (Auto) 0.0 Absolute Nucleated RBC 0.00 Nucleated RBC % 0.0 Sodium 142 Potassium 3.9 Chloride 109 Carbon Dioxide 26 Anion Gap 7.0 BUN 36 H Creatinine 1.5 H Estimated GFR (MDRD) 33 L Glucose 87 Calcium 8.7 Magnesium 1.2 L Total Bilirubin 0.2 AST 15 ALT 21 Alkaline Phosphatase 36 L Total Protein 5.9 L Albumin 3.4 Globulin 2.5 Albumin/Globulin Ratio 1.4 Lipase 16 Urine Color YELLOW Urine Clarity CLEAR Urine pH 6.0 Ur Specific [place] 1.015 Urine Protein NEGATIVE Urine Glucose (UA) 250 H Urine Ketones NEGATIVE Urine Occult Blood NEGATIVE Urine Nitrite NEGATIVE Urine Bilirubin NEGATIVE Urine Urobilinogen 0.2 (NORMAL) Ur Leukocyte Esterase NEGATIVE Ur Microscopic Review NOT INDICATED Urine Culture Comments NOT INDICATED PD Medical Decision Making - ED course Complexity details: reviewed results, re-evaluated patient, considered differential, d/w patient, d/w family ED course: Unremarkable CBC, ER abdominal panel (mildly elevated BUN (36) and creatinine (1.5)). Normal UA aside from (noncontributory) finding of glucosuria (250). Hypomagnesemia noted (1.2); this finding would not be related to her symptoms and will not treat at this time (IV magnesium is relatively contraindicated in setting of MG). As I discussed these results with the patient, she became increasingly upset that I would not be admitting or transferring her. During multiple reevaluations and long conversations between the patient, myself, and also (at times) involving (initially in the ED at patient's bedside), as well as patient's daughter (over the phone at patient's insistence), the patient became increasingly upset with me. She gradually transitions from request to be transferred to . for MG flare to, eventually, demanding so. I explained a number of times to her that she is not describing, nor currently exhibiting, signs/symptoms to support MG flare (AMS would not be s/o MG flare, and whatever the cause of her reported "brain fog", it has clearly resolved as she is awake, alert, oriented and conversant, if increasingly situationally inappropriate). She has a normal physical exam including neurologic exam, and is able to read my name off of my hospital scrubs, as well as reading smaller print information off of a placard at the bedside. I discussed this case with Dr. Lugo (on-call neurology for Dr. Sung' group at [facility]), agrees there is no indication for admit/transfer nor emergent treatment. Patient is discharged back to [facility]. Departure - Departure Disposition: 01 Home, Self Care Clinical Impression: Malaise Condition: Good Instructions: ED Symptoms No Dx Comments: There were no concerning findings on tonight's blood test. Similarly, your urinalysis has no evidence of current urinary tract infection. As we discussed, I contacted your neurology group at [facility] and spoke with Dr. Lugo (the on-call neurologist for [facility]). He agrees that there is no indication for admission/transfer at this time. You are safe and appropriate for discharge. Contact your neurologist on Tuesday to arrange for the next available appointment for follow-up/reevaluation. Discharge Date/Time: 01/08/24 02:26
[2024-01-07 21:49] LABS: CLARITY,URINE CLEAR (CLEAR)
[2024-01-08 02:27] VITALS: BP 139/83; O2SAT 97
== END 2024-01-08 02:26 | disposition home or self-care (01) ==
LOC: EDUNIT# → ED 20:39
DX: R53.81 Other malaise (principal); E83.42 Hypomagnesemia; G70.00 Myasthenia gravis without (acute) exacerbation
CPT/HCPCS: 36415; 80053; 81003; 83690; 83735; 85025; 99283; P9612; 51701; 81001; 87086

== ENCOUNTER 2024-01-08 02:33 | Outpatient (CLI) | payer MEDICARE, OTHER | END 2024-01-08 23:59 | LOC: EMS 02:33 | PROVIDERS: ATTEND Emergency Medicine | DX: R41.0 Disorientation, unspecified (principal) | CPT/HCPCS: A0425; A0428 ==

== ENCOUNTER 2024-01-21 08:00 | Outpatient (CLI) | payer MEDICARE, OTHER ==
[2024-01-21 20:28] LABS: THYROID STIMULATING HORMONE 1.3 uIU/mL (0.34-5.60)
[2024-01-22 19:58] LABS: ESTIMATED AVERAGE GLUCOSE 148 mg/dL (70-100); HEMOGLOBIN A1c% 6.8 % (4.27-6.07)
== END 2024-01-21 23:59 | disposition home or self-care (01) ==
LOC: LAB.R 08:00
PROVIDERS: ATTEND Registered Nurse
DX: R94.6 Abnormal results of thyroid function studies (principal); R73.09 Other abnormal glucose
CPT/HCPCS: 83036; 84439; 84443

== ENCOUNTER 2024-01-25 16:34 | Outpatient (CLI) | payer MEDICARE, OTHER | END 2024-01-25 23:59 | disposition EMS.NT | LOC: EMS 16:34 | DX: Z03.89 Encounter for observation for other suspected diseases and conditions ruled out (principal) ==

== ENCOUNTER 2024-02-13 08:00 | Outpatient (CLI) | payer MEDICARE, OTHER ==
[2024-02-13 20:23] LABS: ESTIMATED AVERAGE GLUCOSE 123 mg/dL (70-100); HEMOGLOBIN A1c% 5.9 % (4.27-6.07)
== END 2024-02-13 23:59 | disposition home or self-care (01) ==
LOC: LAB.R 08:00
PROVIDERS: ATTEND Family Medicine
DX: E11.9 Type 2 diabetes mellitus without complications (principal)
CPT/HCPCS: 83036

== ENCOUNTER 2024-03-04 08:00 | Outpatient (CLI) | payer MEDICARE, OTHER ==
[2024-03-04 11:54] LABS: BILIRUBIN,URINE NEGATIVE (NEGATIVE); GLUCOSE, URINE (UA) 100 mg/dL (NEGATIVE); KETONES,URINE (UA) NEGATIVE (NEGATIVE); LEUKOCYTE ESTERASE, URINE NEGATIVE (NEGATIVE); NITRITE,URINE NEGATIVE (NEGATIVE); OCCULT BLOOD,URINE NEGATIVE (NEGATIVE); PROTEIN,URINE NEGATIVE (NEGATIVE); UROBILINOGEN,URINE 0.2 (NORMAL) E.U./dL (NORMAL)
[2024-03-04 11:55] LABS: CLARITY,URINE CLEAR (CLEAR)
== END 2024-03-04 23:59 | disposition home or self-care (01) ==
LOC: LAB.R 08:00
PROVIDERS: ATTEND Registered Nurse
DX: N39.0 Urinary tract infection, site not specified (principal)
CPT/HCPCS: 81001; 81003; 87086